=== PATIENT | male | born 1955 | race Caucasian/White ===

== ENCOUNTER 2016-03-04 02:36 | Emergency (ER) | payer BC | END 2016-03-04 03:10 | disposition left against medical advice (07) | LOC: ER 03:02 | DX: R06.02 Shortness of breath (principal); Z53.21 Procedure and treatment not carried out due to patient leaving prior to being seen by health care provider ==

== ENCOUNTER → 2020-02-18 | Outpatient (CLI) | payer MEDICARE ==
--- NOTE | 2020-02-18 14:47 | RAD ---
Ultrasound right lower extremity nonvascular examination HISTORY: Right groin lump and pain Sonographic interrogation performed of the right groin and multiple static images were obtained. [place] r Doppler was applied as well. There is a 5 mm hypoechoic structure which could be a fat-containing hernia. There is no other focal abnormality. IMPRESSION: Vague 5 mm hypoechoic area could be a small fat-containing hernia. Clinical correlation is suggested. Electronically signed by: Jonh Cook III, MD (02/18/2020 2:45 PM) [facility]
== END ==
LOC: US 14:02
PROVIDERS: ATTEND Family Medicine
DX: R19.09 Other intra-abdominal and pelvic swelling, mass and lump (principal)
CPT/HCPCS: 76881

== ENCOUNTER → 2020-04-07 | Outpatient (CLI) | payer MEDICARE ==
[~2020-04-07] MED LIST: ALBU0.63 NEB; CLON2TAB9 PO; CRESTOR5 MG PO; HYDR-2769 PO; METF500T16 PO; TAMS0.4C97 PO; TIOT4MIS3 IH
== END ==
LOC: LAB 13:48
PROVIDERS: ATTEND Surgery
DX: Z01.812 Encounter for preprocedural laboratory examination (principal); K40.90 Unilateral inguinal hernia, without obstruction or gangrene, not specified as recurrent; Z20.822 Contact with and (suspected) exposure to COVID-19
CPT/HCPCS: U0003

== ENCOUNTER → 2020-04-11 | Day surgery (SDC) | payer MEDICARE ==
[~2020-04-11] VITALS: Ht 172.7 cm; Wt 79.0 kg
[~2020-04-11] MED LIST changes: +BACITRACIN 50,000 UNIT in IV NORMAL SALINE 500ML BAG 500 ML IRR ONE; +BUPIVACAINE-EPI 0.5% 30 ML VIAL KIT. ONE; +DEXAMETHASONE SOD PHOS 4 MG/ML VIAL ONE; +GLYCOPYRROLATE 1 MG/5 ML VIAL. ONE; +HYDROmorphone 2 MG/ML VIAL IVP PRN; +HYDROmorphone 2 MG/ML VIAL ONE; +INSULIN LISPRO 100 UNIT/ML 3ML VIAL for OP,RR ONLY. SQ PRN; +IV RINGERS,LACTATED 1000ML 1,000 ML IV SCH; +LIDOCAINE 2% PF 5 ML VIAL. ONE; +MORPHINE SULFATE 2 MG/ML VIAL. IVP PRN; +MORPHINE SULFATE 2 MG/ML VIAL. ONE; +NEOSTIGMINE METHYLSULFATE 5 MG/5 ML SYRINGE. ONE; +ONDANSETRON PF 4 MG/2 ML VIAL. ONE; +PROCHLORPERAZINE 10 MG/2 ML VIAL. IVP PRN; +PROPOFOL 10 MG/ML (20ML) VIAL. IV ONE; +ROCURONIUM 50 MG/5 ML VIAL. ONE; +SEVOFLURANE 61 TO 120 MINUTES. IH ONE; +fentaNYL PF VIAL 100 MCG/2 ML VIAL IVP PRN; +fentaNYL PF VIAL 250 MCG/5 ML VIAL ONE; +oxyCODONE/APAP 5/325 1 TAB TABLET PO ONE
--- NOTE | 2020-04-11 14:17 | PDOC4 ---
Operative Note Operative Note Operative Note: Preoperative Diagnosis: Right inguinal hernia Postoperative Diagnosis: Same Procedure: Right inguinal hernia repair with mesh Surgeon: Kike Scrap Preparer: Susu MURILLO Anesthesia: General EBL: 25 mL Specimen: None Drains: None Complications: None Indication: The patient is a 64-year-old male who was referred with a right inguinal hernia. He was offered surgical repair. The risks of surgery were discussed which include bleeding, infection, recurrence, pain, anesthetic risk, potential need for additional surgery procedure. He understands and would like to proceed. Description: The patient was taken to the operating room and placed supine in the operating table. General anesthesia was performed. The right groin was shaved prepped with ChloraPrep and draped in a standard surgical manner. An incision was made in the skin lines with a scalpel. Cautery dissection was carried down to the fascia. The external oblique was opened down to the external ring. The contents of the inguinal canal were digitally mobilized and encircled with a Taylor drain. The patient had a moderate to large sized direct hernia defect. There was no indirect hernia sac noted. The edges of the hernia defect were delineated. The attenuated transversus was opened exposing the preperitoneal fat. An extra large Phasix mesh plug was placed in the defect and secured around its periphery with 2-0 Vicryl. The entire inguinal floor was then reinforced with a Prolene keyhole mesh patch. The mesh was sutured into position with 2-0 Vicryl. A slit was made to accommodate the cord structures. The external oblique was closed over the mesh with 2-0 Vicryl. The subcutaneous tissue was closed with 3-0 Vicryl. The skin was approximated with 4-0 Monocryl. The incision was infiltrated with half percent Marcaine with epinephrine. Steri-Strips and a sterile dressing were applied. The patient tolerated the procedure well and was sent to the recovery room in stable condition. At the end of the case all counts were correct. ÁNGEL RHODES MD Apr 11, 2020 14:16
--- NOTE | 2020-04-11 14:19 | DISCH ---
DISCHARGE INSTRUCTIONS Condition on Discharge Condition on Discharge: Stable Activity After Discharge Activity Instructions for Disc: Other, see below (no lifting over 20 lbs X 4 weeks) Diet after Discharge Diet after Discharge: Regular Wound Incision Care Wound/Incision Care: Other, see below (keep dressing clean and dry X 72 hours, may then remove and shower) Follow-Up Follow up with: Dr Rhodes in office in 2 weeks, call for appointment [phone] ÁNGEL RHODES MD Apr 11, 2020 14:19
[2020-04-11 14:36] VITALS: BP 142/65
== END | disposition home or self-care (01) ==
LOC: SURG 11:27
PROVIDERS: ATTEND Surgery
DX: K40.90 Unilateral inguinal hernia, without obstruction or gangrene, not specified as recurrent (principal); E78.00 Pure hypercholesterolemia, unspecified; J44.9 Chronic obstructive pulmonary disease, unspecified; N40.0 Benign prostatic hyperplasia without lower urinary tract symptoms; M06.9 Rheumatoid arthritis, unspecified; F41.9 Anxiety disorder, unspecified; Z79.899 Other long term (current) drug therapy; Z87.891 Personal history of nicotine dependence; Z98.890 Other specified postprocedural states; Z72.89 Other problems related to lifestyle; Z88.2 Allergy status to sulfonamides; Z88.8 Allergy status to other drugs, medicaments and biological substances
CPT/HCPCS: 49505; 82962; C1781; J0690; J1100; J1170; J2270; J2405; J2704; J2710; J3010; J3490; J7040; J7120

== ENCOUNTER → 2021-04-27 | Outpatient (CLI) | payer MEDICARE ==
[2020-04-11 14:36] VITALS: BP 142/65
[~2021-04-27] MED LIST changes: -BACITRACIN 50,000 UNIT in IV NORMAL SALINE 500ML BAG 500 ML IRR ONE; -BUPIVACAINE-EPI 0.5% 30 ML VIAL KIT. ONE; -DEXAMETHASONE SOD PHOS 4 MG/ML VIAL ONE; -GLYCOPYRROLATE 1 MG/5 ML VIAL. ONE; -HYDROmorphone 2 MG/ML VIAL IVP PRN; -HYDROmorphone 2 MG/ML VIAL ONE; -INSULIN LISPRO 100 UNIT/ML 3ML VIAL for OP,RR ONLY. SQ PRN; -IV RINGERS,LACTATED 1000ML 1,000 ML IV SCH; -LIDOCAINE 2% PF 5 ML VIAL. ONE; -MORPHINE SULFATE 2 MG/ML VIAL. IVP PRN; -MORPHINE SULFATE 2 MG/ML VIAL. ONE; -NEOSTIGMINE METHYLSULFATE 5 MG/5 ML SYRINGE. ONE; -ONDANSETRON PF 4 MG/2 ML VIAL. ONE; -PROCHLORPERAZINE 10 MG/2 ML VIAL. IVP PRN; -PROPOFOL 10 MG/ML (20ML) VIAL. IV ONE; -ROCURONIUM 50 MG/5 ML VIAL. ONE; -SEVOFLURANE 61 TO 120 MINUTES. IH ONE; -fentaNYL PF VIAL 100 MCG/2 ML VIAL IVP PRN; -fentaNYL PF VIAL 250 MCG/5 ML VIAL ONE; -oxyCODONE/APAP 5/325 1 TAB TABLET PO ONE
--- NOTE | 2021-04-27 16:38 | RAD ---
3 views of the cervical spine. INDICATION: Neck pain, stiffness, decreased range of motion COMPARISON: None FINDINGS: No alignment abnormality. Intervertebral disc spaces are well-maintained. Minimal ossificat ion of the anterior longitudinal ligament. No fracture. No prevertebral soft tissue swelling. Minimal degenerative changes. IMPRESSION: 1. No acute osseous or alignment abnormality of cervical spine. Electronically signed by: Michele Vee MD (04/27/2021 4:36 PM) [id number]
== END ==
LOC: RAD 15:17
PROVIDERS: ATTEND Family Medicine
DX: M54.2 Cervicalgia (principal); M53.82 Other specified dorsopathies, cervical region
CPT/HCPCS: 72040